=== PATIENT | female | born 1935 | race Caucasian/White ===

== ENCOUNTER 2018-11-16 17:44 | Inpatient (IN) ==
[2018-11-16 19:14] LABS: Basophils % 0.3 % (0.0-0.8); Eosinophils # 0.2 10*3/uL (0.0-0.87); Eosinophils % 2.1 % (0.00-10.9); Hematocrit 36.6 VOL% (35.7-47.0); Hemoglobin 11.4 GM/DL (12.0-16.0); Immature Granulocytes % 0.5 %; Immature Granulocytes Absolute 0.04 #; Lymphocytes # 1.7 10*3/uL (1.4-4.0); Lymphocytes % 20.2 % (21.3-54.2); Mean Corpuscular HGB Conc 31.1 GM/DL (32-36); Mean Platelet Volume 11.2 FL (9.6-12.0); Monocytes % 9.4 % (1.7-12.7); Neutrophils % 67.5 % (38.7-73.9); Platelet Count 171 T/CUMM (130-400); Red Blood Count 4.41 MC/CUMM (3.8-5.5); Red Cell Distribution Width 18.3 % (9.3-17.3); White Blood Count 8.6 T/CUMM (4-12)
[2018-11-16 19:32] LABS: Albumin 3.4 G/DL (3.4-5.0); Bilirubin,Total 1.1 MG/DL (0.2-1.0); Calcium 9.3 MG/DL (8.5-10.1); Osmolality,Calculated 281.3 MOS/KG (273-304); Total Protein 8.1 G/DL (6.4-8.3)
[2018-11-16] MEDS ORDERED: cefTRIAXone 1,000 MG in SODIUM CHLORIDE 0.9% 100 ML IV STA (20:18)
[2018-11-16] MEDS ORDERED: FUROSEMIDE 40 MG/4 ML VIAL IV STA (20:18)
[2018-11-17] MEDS ORDERED: hydrALAZINE 20 MG/1 ML VIAL IV PRN (01:30)
[2018-11-17] MEDS ORDERED: DOCUSATE SODIUM 100 MG CAPSULE PO PRN (01:30)
[2018-11-17] MEDS ORDERED: ONDANSETRON 4 MG/2 ML VIAL IV PRN (01:30)
[2018-11-17] MEDS ORDERED: ALBUTEROL 2.5 MG/3 ML NEB RESP TX PRN (01:30)
[2018-11-17] MEDS ORDERED: DEXTROSE 50% 25 GM/50 ML VIAL IV PRN ×2 (01:30→23:37)
[2018-11-17] MEDS ORDERED: GLUCAGON 1 MG VIAL IM PRN (01:30)
[2018-11-17] MEDS: ALBUTEROL/IPRATROPIUM 3 ML NEB RESP TX SCH ×4 (03:03→19:32)
[2018-11-17 05:10] LABS: Basophils % 0.4 % (0.0-0.8); Eosinophils # 0.3 10*3/uL (0.0-0.87); Eosinophils % 3.9 % (0.00-10.9); Hematocrit 31.5 VOL% (35.7-47.0); Hemoglobin 9.8 GM/DL (12.0-16.0); Immature Granulocytes % 0.3 %; Immature Granulocytes Absolute 0.02 #; Lymphocytes # 1.2 10*3/uL (1.4-4.0); Lymphocytes % 16.3 % (21.3-54.2); Mean Corpuscular HGB Conc 31.1 GM/DL (32-36); Mean Platelet Volume 11.9 FL (9.6-12.0); Monocytes % 10.7 % (1.7-12.7); Neutrophils % 68.4 % (38.7-73.9); Platelet Count 159 T/CUMM (130-400); Red Blood Count 3.75 MC/CUMM (3.8-5.5); Red Cell Distribution Width 18.2 % (9.3-17.3); White Blood Count 7.4 T/CUMM (4-12)
[2018-11-17 05:25] LABS: % Iron Saturation 6.7 % (18-50); Calcium 9.1 MG/DL (8.5-10.1); Ferritin 44.1 ng/ml (8-252); Thyroid Stimulating Hormone 0.036 uIU/ml (0.358-3.74)
[2018-11-17 05:27] LABS: Folate 15.4 NG/ML (5.4-24.0); Vitamin B12 414 PG/ML (211-911)
[2018-11-17 06:19] LABS: Sedimentation Rate-Westergren 65 MM/HR (0-30)
[2018-11-17] MEDS ORDERED: carvediloL 12.5 MG TABLET PO SCH (08:00)
[2018-11-17 08:14] LABS: Troponin I < 0.015 NG/ML (0.00-0.045)
[2018-11-17] MEDS: FUROSEMIDE 40 MG/4 ML VIAL IV SCH ×2 (08:51→16:14)
[2018-11-17] MEDS: AZITHROMYCIN INJ 500 MG in SODIUM CHLORIDE 0.9% 250 ML IV SCH (08:53)
[2018-11-17] MEDS: ATORVASTATIN 80 MG TABLET PO SCH (08:56)
[2018-11-17] MEDS: PANTOPRAZOLE 20 MG TABLET PO SCH (08:57)
[2018-11-17] MEDS: ALLOPURINOL 100 MG TABLET PO SCH (08:57)
[2018-11-17] MEDS: guaiFENesin/DM ER 600-30 MG TABLET PO SCH ×2 (08:57→21:30)
[2018-11-17] MEDS: ENOXAPARIN 40 MG/0.4 ML SYRINGE SUBCUT SCH (08:58)
[2018-11-17] MEDS: BUDESONIDE/FORMOTEROL 160-4.5 INHALER 6 GM INH SCH ×2 (08:58→21:29)
[2018-11-17] MEDS ORDERED: POTASSIUM CHLORIDE 10 MEQ TABLET PO SCH (09:00)
[2018-11-17 10:09] LABS: Hemoglobin A1 (Alkaline) 97.4 % (96.5-98.5); Hemoglobin A2 (Alkaline) 2.6 % (1.5-3.5)
[2018-11-17 10:42] LABS: Troponin I < 0.015 NG/ML (0.00-0.045)
[2018-11-17] MEDS ORDERED: MAGNESIUM SULF RIDER 4 GM in PREMIX 1 EACH IV PRN (11:39)
[2018-11-17] MEDS ORDERED: MAGNESIUM SULF RIDER 2 GM in PREMIX 1 EACH IV PRN (11:39)
[2018-11-17] MEDS: methylPREDNISolone SOD SUC 40 MG/1 ML VIAL IV SCH ×2 (11:57→23:15)
[2018-11-17] MEDS: ACETAMINOPHEN 325 MG TABLET PO PRN (11:58)
[2018-11-17 14:14] LABS: Troponin I < 0.015 NG/ML (0.00-0.045)
[2018-11-17] MEDS: carvediloL 25 MG TABLET PO SCH (16:13)
[2018-11-17] MEDS: cefTRIAXone 1,000 MG in SYRINGE 1 EACH IV SCH (21:30)
[2018-11-17] MEDS: POTASSIUM CHLORIDE 10 MEQ TABLET PO SCH (21:30)
[2018-11-17] MEDS ORDERED: INSULIN REGULAR 100 UNIT/ML SUBCUT SCH (23:30)
[2018-11-17] MEDS: INSULIN REGULAR 100 UNIT/ML SUBCUT SCH (23:52)
[2018-11-18] MEDS: ALBUTEROL/IPRATROPIUM 3 ML NEB RESP TX SCH ×4 (00:40→19:38)
[2018-11-18] MEDS: ACETAMINOPHEN 325 MG TABLET PO PRN ×2 (02:35→21:57)
[2018-11-18 04:03] LABS: Calcium 8.8 MG/DL (8.5-10.1); Hematocrit 31.9 VOL% (35.7-47.0); Immature Granulocytes % 0.2 %; Immature Granulocytes Absolute 0.01 #; Lymphocytes # 0.6 10*3/uL (1.4-4.0); Lymphocytes % 14.1 % (21.3-54.2); Mean Corpuscular HGB Conc 31.3 GM/DL (32-36); Mean Corpuscular Volume 81.6 FL (87-102); Mean Platelet Volume 11.8 FL (9.6-12.0); Monocytes % 2.2 % (1.7-12.7); Neutrophils % 83.5 % (38.7-73.9); Osmolality,Calculated 287.3 MOS/KG (273-304); Platelet Count 151 T/CUMM (130-400); Red Blood Count 3.91 MC/CUMM (3.8-5.5); Red Cell Distribution Width 17.6 % (9.3-17.3); White Blood Count 4.6 T/CUMM (4-12)
[2018-11-18] MEDS: ATORVASTATIN 80 MG TABLET PO SCH (08:27)
[2018-11-18] MEDS: ALLOPURINOL 100 MG TABLET PO SCH (08:27)
[2018-11-18] MEDS: guaiFENesin/DM ER 600-30 MG TABLET PO SCH ×2 (08:27→21:46)
[2018-11-18] MEDS: POTASSIUM CHLORIDE 10 MEQ TABLET PO SCH ×2 (08:27→21:46)
[2018-11-18] MEDS: AZITHROMYCIN INJ 500 MG in SODIUM CHLORIDE 0.9% 250 ML IV SCH (08:28)
[2018-11-18] MEDS: carvediloL 25 MG TABLET PO SCH ×2 (08:28→17:40)
[2018-11-18] MEDS: PANTOPRAZOLE 20 MG TABLET PO SCH (08:28)
[2018-11-18] MEDS: FUROSEMIDE 40 MG TABLET PO SCH (08:28)
[2018-11-18] MEDS: ENOXAPARIN 40 MG/0.4 ML SYRINGE SUBCUT SCH (08:28)
[2018-11-18] MEDS: BUDESONIDE/FORMOTEROL 160-4.5 INHALER 6 GM INH SCH ×2 (08:29→21:47)
[2018-11-18] MEDS: INSULIN REGULAR 100 UNIT/ML SUBCUT SCH ×4 (08:37→21:45)
[2018-11-18] MEDS: LOSARTAN 25 MG TABLET PO SCH (11:00)
[2018-11-18] MEDS: methylPREDNISolone SOD SUC 40 MG/1 ML VIAL IV SCH (11:00)
[2018-11-18] MEDS: cefTRIAXone 1,000 MG in SYRINGE 1 EACH IV SCH (21:46)
[2018-11-18] MEDS ORDERED: methylPREDNISolone SOD SUC 40 MG/1 ML VIAL IV SCH (23:00)
[2018-11-19] MEDS: ALBUTEROL/IPRATROPIUM 3 ML NEB RESP TX SCH ×3 (01:23→12:08)
[2018-11-19 04:19] LABS: Hematocrit 31.7 VOL% (35.7-47.0); Hemoglobin 9.9 GM/DL (12.0-16.0); Immature Granulocytes % 0.5 %; Immature Granulocytes Absolute 0.04 #; Lymphocytes # 0.7 10*3/uL (1.4-4.0); Lymphocytes % 8.1 % (21.3-54.2); Mean Corpuscular HGB Conc 31.2 GM/DL (32-36); Mean Platelet Volume 12.7 FL (9.6-12.0); Monocytes % 3.5 % (1.7-12.7); Neutrophils % 87.9 % (38.7-73.9); Platelet Count 174 T/CUMM (130-400); Red Blood Count 3.82 MC/CUMM (3.8-5.5); Red Cell Distribution Width 17.7 % (9.3-17.3)
[2018-11-19 04:52] LABS: Calcium 9.1 MG/DL (8.5-10.1); Osmolality,Calculated 297.3 MOS/KG (273-304)
[2018-11-19] MEDS ORDERED: methylPREDNISolone SOD SUC 40 MG/1 ML VIAL IV SCH (09:00)
[2018-11-19] MEDS ORDERED: AZITHROMYCIN 250 MG TABLET PO SCH (09:00)
[2018-11-19] MEDS: guaiFENesin/DM ER 600-30 MG TABLET PO SCH (09:38)
[2018-11-19] MEDS: ATORVASTATIN 80 MG TABLET PO SCH (09:40)
[2018-11-19] MEDS: PANTOPRAZOLE 20 MG TABLET PO SCH (09:41)
[2018-11-19] MEDS: LOSARTAN 25 MG TABLET PO SCH (09:41)
[2018-11-19] MEDS: FUROSEMIDE 40 MG TABLET PO SCH (09:42)
[2018-11-19] MEDS: carvediloL 25 MG TABLET PO SCH ×2 (09:42→17:03)
[2018-11-19] MEDS: POTASSIUM CHLORIDE 10 MEQ TABLET PO SCH (09:43)
[2018-11-19] MEDS: ALLOPURINOL 100 MG TABLET PO SCH (09:44)
[2018-11-19] MEDS: ENOXAPARIN 40 MG/0.4 ML SYRINGE SUBCUT SCH (09:45)
[2018-11-19] MEDS: INSULIN REGULAR 100 UNIT/ML SUBCUT SCH ×3 (10:12→17:02)
[2018-11-19] MEDS: BUDESONIDE/FORMOTEROL 160-4.5 INHALER 6 GM INH SCH (10:12)
[2018-11-19] MEDS ORDERED: HydrOXYzine PAMOATE 25 MG CAPSULE PO ONE (12:33)
[2018-11-19 15:57] VITALS: BP 178/77
== END 2018-11-19 18:00 | disposition home health service (06) | DRG 291 ==
LOC: N.ED 17:44 → N.EDINP 23:47 → N.TELEN 11-17 00:23
PROVIDERS: ADMIT Internal Medicine; ATTEND Internal Medicine